=== PATIENT | female | born 1935 | race Caucasian/White ===

== ENCOUNTER 2018-04-15 02:53 | Inpatient (IN) | payer MEDICARE, OTHER ==
[~2018-04-15] VITALS: Ht 172.7 cm; Wt 83.0 kg
[2018-04-15] MEDS ORDERED: WARFARIN SODIUM1 MG ORAL (02:54)
[2018-04-15] MEDS ORDERED: GABAPENTIN100 MG ORAL (02:55)
[2018-04-15] MEDS ORDERED: METOPROLOL TART25 MG ORAL (02:55)
--- NOTE | 2018-04-15 03:10 | Emergency Room Report ---
History of Present Illness General Chief Complaint: Chest Pain Source: Patient Present Illness HPI This is an 82-year-old female with a history of rheumatic fever and atrial fibrillation. She is currently on Xarelto. She presents with chief complaint of chest pressure. Onset at about 7 hours prior to arrival. Described the pain as squeezing. No radiation. No nausea no vomiting. No fever or chills. Better after getting nitroglycerin and aspirin by EMS. Denies any other complaint. No exertional component. Similar symptom in the past. Allergies: Coded Allergies: No Known Allergies (Unverified , 04/15/18) Patient History Past Medical History: see triage record, old chart reviewed, AFib Past Surgical History: other Pertinent Family History: none Social History: Denies: smoking Now: No Immunizations: other Reviewed Nursing Documentation: PMH: Agreed; PSxH: Agreed Nursing Documentation-PMH Past Medical History: No History, Except For Hx Hypertension: Yes Review of Systems Eye: Denies: eye pain, blurred vision ENT: Denies: ear pain, nose congestion, throat swelling Respiratory: Denies: cough, shortness of breath Cardiovascular: Reports: chest pain; Denies: palpitations Gastrointestinal: Denies: abdominal pain, diarrhea, nausea, vomiting Musculoskeletal: Denies: back pain, joint pain Skin: Denies: rash Neurological: Denies: headache, numbness Endocrine: Denies: increased thirst, increased urine Hematologic/Lymphatic: Denies: easy bruising All Other Systems: negative except mentioned in HPI Physical Exam Vital Signs Date Time Temp Pulse Resp B/P (MAP) Pulse Ox O2 Delivery O2 Flow Rate FiO2 04/15/18 02:49 98.6 96 18 150/98 99 Room Air vitals with high blood pressure Sp02 EP Interpretation: reviewed, normal General Appearance: well appearing, no apparent distress, alert Head: normocephalic, atraumatic Eyes: bilateral eye PERRL, bilateral eye EOMI ENT: hearing grossly normal, normal pharynx Neck: full range of motion, supple, no meningismus Respiratory: chest non-tender, lungs clear, normal breath sounds Cardiovascular #1: no murmur, irregularly irregular Gastrointestinal: normal bowel sounds, non tender, no mass, no organomegaly, no bruit, non-distended Musculoskeletal: back normal, gait/station normal, normal range of motion Neurologic: alert, oriented x3 Psychiatric: mood/affect normal Skin: warm/dry Medical Decision Making Diagnostic Impression: Primary Impression: Chest pain Qualified Codes: R07.9 - Chest pain, unspecified Additional Impression: Atrial fibrillation, chronic ER Course Patient with chief complaint of chest pain. Pulmonary negative. She has chronic A. fib and is on Xarelto. No evidence of ST elevation [place]. Cousin of her age and risk factors, will admit for further workup. I discussed the case with Dr. Calloway who will admit. Lab Results Impression labs unremarkable EKG Diagnostic Results Rate: normal Rhythm: other - afib ST Segments: no acute changes Rhythm Strip Diag. Results EP Interpretation: yes Rate: 80 Rhythm: no PVC's, no ectopy, other - afib Chest X-Ray Diagnostic Results Chest X-Ray Diagnostic Results : Chest X-Ray Ordered: Yes # of Views/Limited/Complete: 1 View Indication: Chest Pain EP Interpretation: Yes Interpretation: no consolidation, no effusion, no pneumothorax, other - Bilateral granulomatous changes Impression: Other - atelectasis Electronically Signed by: Jordan Lacy MD Last Vital Signs Date Time Temp Pulse Resp B/P (MAP) Pulse Ox O2 Delivery O2 Flow Rate FiO2 04/15/18 02:49 98.6 96 18 150/98 99 Room Air Status: improved Disposition: ADMITTED INPATIENT Condition: Serious Jordan Lacy MD Apr 15, 2018 03:10
[2018-04-15 03:23] LABS: HEMATOCRIT 37.8 % (37.0-47.0); MEAN CORPUSCULAR VOLUME 94 FL (80-99); PLATELET COUNT 163 K/UL (150-450); RED BLOOD COUNT 4.05 M/UL (4.20-5.40); RED CELL DISTRIBUTION WIDTH 12.4 % (11.6-14.8); WHITE BLOOD COUNT 4.9 K/UL (4.8-10.8)
[2018-04-15 03:33] LABS: ANION GAP 7 mmol/L (5-15); BLOOD UREA NITROGEN 20 mg/dL (7-18); CARBON DIOXIDE 28 MMOL/L (21-32); CHLORIDE 105 MMOL/L (98-107); SODIUM 140 MMOL/L (136-145)
[2018-04-15 03:39] LABS: INR 1.6 (0.9-1.1)
[2018-04-15 03:45] VITALS: BP 130/74
[2018-04-15 03:46] LABS: ALANINE AMINOTRANSFERASE 28 U/L (12-78); ALBUMIN 3.7 G/DL (3.4-5.0); ALKALINE PHOSPHATASE 91 U/L (46-116); ASPARTATE AMINO TRANSFERASE 27 U/L (15-37); BILIRUBIN,TOTAL 0.5 MG/DL (0.2-1.0); CKMB 1.2 NG/ML (0.0-3.6); CREATINE KINASE 82 U/L (26-308)
--- NOTE | 2018-04-15 04:35 | NUR ---
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
--- NOTE | 2018-04-15 05:09 | NUR ---
NURSE NOTES: Called for new admission orders,massage left ,waiting for doctor's respond.Charge nurse aware.
[2018-04-15] MEDS ORDERED: Nitroglycerin Subl 0.4mg tab SL PRN (06:00)
--- NOTE | 2018-04-15 07:16 | NUR ---
HAND-OFF: Report given to TOMASA Tenorio.Patient stable.
[2018-04-15 08:00] VITALS: BP 120/68
[2018-04-15] MEDS: Metoprolol 25mg tab ORAL SCH ×2 (08:25→21:26)
--- NOTE | 2018-04-15 08:31 | NUR ---
NURSE NOTES: received pt in the bed, awake, alert, oriented, vital signs stable, no co pain, no SOB, respiration regular, skin warm and dry to touch, intact, no edema. tolerate diet well, bed in low position, call light within reach.
[2018-04-15 11:16] LABS: CHOLESTEROL 139 MG/DL (< 200); HDL CHOLESTEROL 61 MG/DL (40-60); TRIGLYCERIDES 77 MG/DL (30-150)
--- NOTE | 2018-04-15 11:55 | Diagnostic Imaging Report ---
Indication: Chest pain Technique: One view of the chest Comparison: none Findings: The heart is borderline enlarged. There is bilateral interstitial prominence and central bronchial wall thickening. No focal airspace consolidation. No definite effusion Impression: Interstitial prominence and central bronchial wall thickening, may be chronic or may be on the basis of interstitial congestion-correlate with clinical findings Borderline cardiomegaly
[2018-04-15 12:00] VITALS: BP 119/64
[2018-04-15] MEDS ORDERED: Xarelto 10mg tab ORAL SCH (13:57)
[2018-04-15] MEDS ORDERED: LORazepam 0.5mg tab ORAL PRN (14:00)
[2018-04-15] MEDS: Xarelto 15mg tab ORAL SCH (14:39)
--- NOTE | 2018-04-15 14:57 | NUR ---
NURSE NOTES: second troponin negative, dr. Calloway aware, saw pt, no co chest pain,continue monitoring.
[2018-04-15 16:00] VITALS: BP 108/73
--- NOTE | 2018-04-15 17:46 | NUR ---
NURSE NOTES: pt transferred to 2E as ordered, condition stable, report given to DONTE RANDOLPH.
--- NOTE | 2018-04-15 17:47 | NUR ---
NURSE NOTES: Received Transfer from [facility], report given by TOMASA Talley. Patient is resting in bed, in semi- mccallum position. Alert and oriented x4.No SOB in room air. No signs and symptoms of acute distress at this time. Bed at lowest position with two side rails up, call light and bed side table within reach. Will continue to monitor and follow plan of care.
[2018-04-15] MEDS ORDERED: XARELTO15 MG ORAL (18:00)
--- NOTE | 2018-04-15 19:40 | NUR ---
HAND-OFF: Report given to TOMASA [place].
--- NOTE | 2018-04-15 19:45 | History and Physical Report ---
DATE OF ADMISSION: 04/15/2018 REASON FOR ADMISSION: Chest pain. HISTORY OF PRESENT ILLNESS: This is an 82-year-old Citizen Of [place] female with a history of rheumatic heart disease and paroxysmal atrial fibrillation without chronic anticoagulation. She notes that she has chest pain on occasion and uses nitroglycerin. Late last evening, she developed an episode of chest pain that was described as heavy, squeezing, and typical for her angina. However, she took two nitros with no relief, which she described as unusual. She also took an aspirin. She did come to the emergency room because she was concerned about the length of her symptoms. There she was noted to have a normal troponin level and initial EKG revealing atrial fibrillation with ventricular rate of [address]-T wave changes. PAST MEDICAL HISTORY: 1. Atrial fibrillation. 2. GERD. 3. Bronchospastic lung disease. 4. Rheumatic heart disease and rheumatic valve disease. 5. Hypertension. 6. History of congestive heart failure. 7. Hyperlipidemia. ALLERGIES: None. MEDICATIONS: Reviewed and reconciled. SOCIAL HISTORY: Negative for smoking, alcohol, or substance abuse. FAMILY HISTORY: Noncontributory. REVIEW OF SYSTEMS: No fevers or chills. No cough or sputum production. She takes a diuretic regularly. She has not had any history of abnormal blood clotting. She denies any known history of heart attack. She does have chest pain that responds to nitroglycerin, she usually requires it once or twice a month. She denies any melena, bright red blood per rectum, or change in bowel habits. She is unaware of any history of kidney dysfunction. There is no known history of diabetes or thyroid impairment. She is on anti-lipid drugs. There is no known history of seizure or stroke. PHYSICAL EXAMINATION: GENERAL: Pleasant, well developed, and well nourished, in no acute distress. VITAL SIGNS: Blood pressure 120/68, pulse 80, respirations 20, and afebrile. HEENT: Normocephalic and atraumatic. Conjunctivae pink. Sclerae are anicteric. Oropharynx clear. Mucous membranes moist. NECK: Supple. Jugular venous pressure is slightly elevated. Carotid upstrokes without delay. LUNGS: With few rales. BREASTS: Without discrete masses. CARDIAC: Irregularly irregular rhythm. Normal S1, S2. A 1/6 systolic murmur at apex. Point of maximum pulse laterally displaced and sustained. ABDOMEN: Soft and nontender. EXTREMITIES: Good pulses. Trace edema. NEUROLOGIC: Nonfocal. LABORATORY AND DIAGNOSTIC DATA: Troponin is negative. Pro-natriuretic peptide 935, potassium 4, BUN 20, and creatinine 1.0. Albumin 3.7. White count is 4.9 and hemoglobin is 13. IMPRESSION: 1. Acute coronary syndrome. 2. Paroxysmal atrial fibrillation, rate controlled. 3. Acute on chronic diastolic congestive heart failure. 4. Rheumatic heart disease. 5. History of hyperlipidemia. PLAN: 1. Cardiac monitoring. Continue Xarelto for cardioembolic prophylaxis. 2. Diuresis with intravenous loop diuretics. 3. Maximize anti-failure regimen. 4. Serial troponin. 5. We will obtained old records from regular physicians and prior hospitalizations. 6. We will consider further diagnostic workup of coronary flow reserve if not recently done as well as echocardiogram to assess left ventricular function and valvular . 7. Long-acting nitrates will be considered as well. Kiet Calloway M.D. DR: EDUARDO JOB#: [id number] CC:
[2018-04-15] MEDS ORDERED: Atorvastatin 20mg tab ORAL SCH (21:00)
[2018-04-15 21:55] VITALS: BP 105/57
[2018-04-15 21:57] VITALS: BP 105/57
[2018-04-16] VITALS: BP 117/67
[2018-04-16 04:00] VITALS: BP 114/70
[2018-04-16 08:00] VITALS: BP 110/62
--- NOTE | 2018-04-16 08:00 | NUR ---
NURSE NOTES: received pt in the bed, A/A/Ox4, v/s stable, no c/o pain, no SOB, respiration regular, skin warm and dry to touch, intact, no edema. ambulates with no distress noted. tolerate food intake well. bed in low position, siderails are up x2. call light within reach. will cont to monitor.
[2018-04-16] MEDS: Metoprolol 25mg tab ORAL SCH (08:41)
[2018-04-16] MEDS: Xarelto 15mg tab ORAL SCH (08:41)
[2018-04-16 11:12] LABS: ANION GAP 6 mmol/L (5-15); BLOOD UREA NITROGEN 21 mg/dL (7-18); CALCIUM 9.8 MG/DL (8.5-10.1); CARBON DIOXIDE 32 MMOL/L (21-32); CHLORIDE 103 MMOL/L (98-107); POTASSIUM 4.5 MMOL/L (3.5-5.1); SODIUM 141 MMOL/L (136-145)
[2018-04-16 12:08] VITALS: BP 117/70
--- NOTE | 2018-04-16 13:24 | NUR ---
HAND-OFF: Report given to Chepe.
[2018-04-16] MEDS ORDERED: FUROSEMIDE40 MG ORAL (16:13)
[2018-04-16] MEDS ORDERED: POTASSIUM CHLO10 ME3 ORAL (16:14)
[2018-04-16] MEDS ORDERED: ACETAMINOPHEN325 M1 ORAL (16:14)
[2018-04-16] MEDS ORDERED: LIPITOR20 MG ORAL (16:14)
[2018-04-16] MEDS ORDERED: NITROSTAT0.4 M1 SL (16:15)
[2018-04-16] MEDS ORDERED: nitroglycerin (16:15)
[2018-04-16] MEDS ORDERED: ATIVAN0.5 MG ORAL (16:16)
[2018-04-16 16:55] VITALS: BP 105/59
--- NOTE | 2018-04-16 16:56 | NUR ---
NURSE NOTES: iv removed no bleeding, arm band removed. all belongings given to pt except for [place] id , per registration they didnt scan it [facility] the crew is off today but he will inquire [facility] informed pt that the vehicle number is [id number]
--- NOTE | 2018-04-16 16:57 | NUR ---
NURSE NOTES: pt left in stable condition.
[2018-04-16] MEDS ORDERED: Tubing IV Secondary IV ONE (16:58)
[2018-04-16] MEDS ORDERED: NS 275ml ONE (16:58)
[2018-04-16] MEDS ORDERED: Sterile Water For Inj 1000ml IV ONE (16:58)
--- NOTE | 2018-04-17 01:30 | Progress Note ---
DATE: 04/16/2018 CARDIOLOGY PROGRESS NOTE SUBJECTIVE: The patient without chest pain, dizziness, or shortness of breath. She notes some large amount of urine output yesterday. She admits that at home, she has been only taking half of her diuretic pill, namely 20 mg of furosemide. OBJECTIVE: VITAL SIGNS: Blood pressure 117/70, pulse 90, and respirations 20. LUNGS: Clear. CARDIAC: Irregularly irregular. Normal S1, S2. A 1/6 systolic apical murmur. ABDOMEN: Soft. EXTREMITIES: Trace edema. LABORATORY DATA: Pro-natriuretic peptide has decreased to 570. Potassium is 4.5. Magnesium is 2. IMPRESSION: 1. Acute on chronic diastolic congestive heart failure. 2. Valvular cardiomyopathy. 3. Hypertensive heart disease. 4. Chronic atrial fibrillation. 5. Anginal episode precipitated by increased pulmonary venous pressures. DISCUSSION AND PLAN: The patient is stable for outpatient followup. She is compensated clinically from a cardiovascular standpoint following diuresis. She has been advised to take a 40 mg furosemide tablet daily for maintenance. The remainder of her medication regimen will be continued as is. Outpatient followup is offered, as she may get a reason to return to care with her primary care physician. Kiet Calloway M.D. DR: EDUARDO JOB#: [id number] CC:
--- NOTE | 2018-04-17 10:53 | Discharge Summary ---
Discharge Summary Discharge Summary _ DATE OF ADMISSION: 04/15/2018 DATE OF DISCHARGE: 04/16/2018 DISCHARGED BY: Dr. Kiet Calloway BRIEF HOSPITAL COURSE: Patient is an 82-year-old [place] female with history of rheumatic heart disease and paroxysmal atrial fibrillation with chronic anticoagulation. She developed chest pain on occasion and was using nitroglycerin. The night before admission, she developed an episode of chest pain that was described to be heavy , squeezing and typical for her angina. She took 2 nitro without relief, which was unusual. She also took aspirin. She then presented to ED for further evaluation. On evaluation at ED, blood pressure was 150/98, pulse rate 96, 99% saturation on room air. Initial troponin was negative. ProBNP was 395. EKG showed A. fib with no acute changes. Chest x-ray showed borderline cardiomegaly with interstitial prominence and central bronchial wall thickening. Due to patient' s risk factors, patient was admitted for further evaluation duration. She underwent cardiac monitoring. She was given Xarelto for cardioembolic prophylaxis. Serial cardiac enzymes were monitored. She was given diuresis with intravenous loop diuretics. She was continued on metoprolol 25 mg twice daily. Electrolytes were normal. Lipid panel showed LDL of 63. She was continued on Lipitor 20 mg daily. Patient diuresed well overnight. Troponin level were negative. There was no chest pain or shortness of breath. She was advised to increase diuretic dose and to take 40 mg of furosemide daily for maintenance; remainder of medication regimen to be continued as is. Due to rapid improvement in patient's symptoms, she was discharged home to follow-up with her primary care physician. FINAL DIAGNOSES: Acute on chronic diastolic congestive heart failure Valvular cardiomyopathy Hypertensive heart disease Chronic atrial fibrillation Anginal episode precipitated by increased pulmonary venous pressure DISPOSITION: Patient was discharged home. DISCHARGE MEDICATIONS: Refer to Discharge Medication List. DISCHARGE INSTRUCTIONS: Follow-up in a week. I have been assigned to complete a discharge summary on this account, I was not involved with the patient's management. Amelie Urias NP Apr 17, 2018 10:53
== END 2018-04-16 16:59 | disposition home or self-care (01) | DRG 311 ==
LOC: EDBD 02:53 → EMR 03:09 → 2W 03:13 → EDBEDREQ 03:48 → 2E 17:48
DX: I24.9 Acute ischemic heart disease, unspecified (principal); I50.33 Acute on chronic diastolic (congestive) heart failure; I42.8 Other cardiomyopathies; I20.9 Angina pectoris, unspecified; I11.0 Hypertensive heart disease with heart failure; I48.0 Paroxysmal atrial fibrillation; E78.5 Hyperlipidemia, unspecified; I09.9 Rheumatic heart disease, unspecified; K21.9 Gastro-esophageal reflux disease without esophagitis; Z79.01 Long term (current) use of anticoagulants
CPT/HCPCS: 36415; 71045; 80048; 80053; 80061; 82550; 82553; 83735; 83880; 84484; 85025; 85610; 85730; 93005; 99285; J8499